=== PATIENT | female | born 1955 | race African-American/Black ===

== ENCOUNTER 2017-03-20 16:16 | Emergency (ER) | payer MEDICAID ==
[~2017-03-20] VITALS: Ht 167.6 cm; Wt 85.8 kg
[2017-03-20 16:18] VITALS: BP 171/84; PULSE 85; RESP 16; TEMP 98.5; O2SAT 97
[2017-03-20] MEDS ORDERED: ZIAC106.25 PO (16:30)
[2017-03-20] MEDS ORDERED: AMLO10TA2 PO (16:30)
--- NOTE | 2017-03-20 16:36 | PD ---
HPI Chief Complaint: ENT Complaint Time Seen by Provider: 16:34 Travel History International Travel<30 days: No Contact w/Intl Traveler<30days: No Traveled to known affect area: No History of Present Illness HPI Patient also complaining of cough, congestion, sore throat, and subjective fevers ongoing for 3 days. Patient using multiple [id number] medication for symptomatic relief with no improvement of symptoms. Denies anything making it worse. Cough is occasionally productive with yellow phlegm. Patient describes this sore throat pain as "it just hurts" and radiates to her left ear. Pain is worse with swallowing. Denies anything making it better. PFSH Past Medical History Hypertension: Yes Influenza Vaccination: No ?: Not Social History Alcohol Use: Yes (RARE) Tobacco Use: No Substance Use: No Allergies-Medications (Allergen,Severity, Reaction): Coded Allergies: codeine (Verified Adverse Reaction, Severe, GI UPSET/VOMITING, 03/20/17) Reported Meds & Prescriptions Reported Meds & Active Scripts Active Prednisone 20 Mg Tab 20 Mg PO BID 5 Days Reported Amlodipine (Amlodipine Besylate) 10 Mg Tab 10 Mg PO DAILY Ziac (Bisoprolol Fumarate/HCTZ) 10-6.25 Mg Tab 2 Tab PO DAILY Review of Systems Except as stated in HPI: all other systems reviewed are Neg Physical Exam Narrative GENERAL: Well-developed, overly nourished, in no acute distress, and non-ill appearing. SKIN: Focused skin assessment warm and dry. HEAD: Atraumatic. Normocephalic. EYES: Pupils equal and round. EOMI. No scleral icterus. No injection or drainage. ENT: No nasal bleeding or discharge. Mucous membranes pink and moist. Tympanic membranes pearly nunez bilaterally. Posterior pharynx nonerythematous without exudate. Uvula is midline. No tenderness to facial sinuses to palpation. Patient swallowing saliva and talking in full sentences without difficulty. NECK: Trachea midline. No cervical lymphadenopathy. Supple. No nuclear rigidity. CARDIOVASCULAR: Regular rate and rhythm. No murmur appreciated. RESPIRATORY: No accessory muscle use. No respiratory distress. Clear to auscultation. Breath sounds equal bilaterally. MUSCULOSKELETAL: No obvious deformities. No clubbing. No cyanosis. No edema. Full range of motion. NEUROLOGICAL: Awake and alert. No obvious cranial nerve deficits. Motor grossly within normal limits. Normal speech. PSYCHIATRIC: Appropriate mood and affect; insight and judgment normal. Data Data Last Documented VS Vital Signs Date Time Temp Pulse Resp B/P (MAP) Pulse Ox O2 Delivery O2 Flow Rate FiO2 03/20/17 16:18 98.5 85 16 171/84 (113) 97 Orders Orders Group A Rapid Strep Screen (03/20/17 16:34) Influenzae A/B Antigen (03/20/17 16:34) Chest, Single Ap (03/20/17 ) Strep Culture (Group A) (03/20/17 16:45) Ed Discharge Order (03/20/17 18:07) Dexamethasone Inj (Decadron Inj) (03/20/17 18:30) MDM Medical Decision Making Medical Screen Exam Complete: Yes Emergency Medical Condition: Yes Differential Diagnosis Influenza, pharyngitis, viral pharyngitis, pneumonia, URI, bronchitis Narrative Course Patients symptom complex of cough and congestion is consistent with viral URI. The patient is non-ill appearing and is in no respiratory distress and comfortable. The patient moves air well and oxygen saturations are normal. There is no clinical evidence to suggest pneumonia at this time. Plan of care and management were discussed with the patient who agreed with plan. The patient was instructed to follow up with their physician and instructed to return if worsens, progressively worsening shortness of breath or difficulty breathing, persistent fever, chest pains or discomfort, inability to keep medication or fluids down with or without vomiting, or as needed. Patient in no obvious distress upon re-evaluation. All pertinent laboratory/ Radiology result(s) discussed with patient. Patient was asked if they wanted to speak to my attending, which the patient did not wish to do at this time. Any questions/concerns in reference to patient diagnosis/condition discussed and clarified prior to patient's discharge. Reinforced sheer importance of close follow up with patient's primary physician or primary care clinic. Instructed patient to return to ED immediately, if symptoms return/worsen. Patient showed understanding of above instructions. Further instructions and recommendations were detailed in discharge paperwork. Patient ambulated without difficulty out of ED at discharge. Diagnosis Primary Impression: URI with cough and congestion Referrals: [facility] Patient Instructions: General Instructions, Upper Respiratory Infection (ED) Additional Instructions: Follow-up with your primary care physician in 3-5 days for reevaluation. Take all medication as prescribed. Use [id number] cold and flu medication for symptomatic relief. Follow instructions on the packaging. Replacing non- caffeinated non-alcoholic fluids. Do not take ibuprofen, Advil, or Aleve for taking medication prescribed today. Return to the emergency department if symptoms get worse. Med/Other Pt SpecificInfo: Prescription(s) given Scripts Prednisone (Prednisone) 20 Mg Tab 20 MG PO BID for 5 Days, #10 TAB 0 Refills Prov: Gege Dickens MD 03/20/17 Disposition: 01 DISCHARGE HOME Condition: Stable Manuel Orta Mar 20, 2017 16:36
--- NOTE | 2017-03-20 18:01 | RADRPT ---
EXAM DATE/TIME: 03/20/2017 17:25 [facility] COMPARISON: No previous studies available for comparison. INDICATIONS : Cough for 3 days. MEDICAL HISTORY : Hypertension. SURGICAL HISTORY : None. ENCOUNTER: Initial ACUITY: 3 days PAIN SCORE: 2/10 LOCATION: Bilateral chest FINDINGS: A single view of the chest demonstrates the lungs to be symmetrically aerated without evidence of mas s, infiltrate or effusion. The cardiomediastinal contours are unremarkable. Osseous structures are intact. CONCLUSION: No acute disease. There is no evidence of pneumonia. Efe Pfeiffer MD on March 20, 2017 at 17:58 Board Certified Radiologist. This report was verified electronically.
[2017-03-20] MEDS ORDERED: PRED20 PO (18:10)
[2017-03-20] MEDS ORDERED: DEXAMETHASONE SOD PHOS 4 MG/ML VIAL IM ONE (18:30)
== END 2017-03-20 18:35 | disposition home or self-care (01) ==
LOC: PHEFT 16:16
DX: J06.9 Acute upper respiratory infection, unspecified (principal); R05 Cough; R09.89 Other specified symptoms and signs involving the circulatory and respiratory systems; R50.9 Fever, unspecified; H92.02 Otalgia, left ear; I10 Essential (primary) hypertension
CPT/HCPCS: 71045; 87081; 87804; 87880; 96372; 99284; J1100